=== PATIENT | female | born 1945 ===

== ENCOUNTER 2017-01-01 07:11 | Day surgery (SDC) | payer OTHER ==
[2017-01-01 08:00] VITALS: BMI 24.1
[2017-01-01] MEDS ORDERED: Propofol 10 mg/ml Inj (20 ML) ONE (09:04)
[2017-01-01] MEDS ORDERED: Midazolam 2 MG/2 ML VIAL ONE (09:04)
--- NOTE | 2017-01-01 09:06 | CP.SDSHP ---
Same Day Surgery H & P - History Proposed Procedure: colonoscopy - Previous Medical/Surgical History Cardiac: Hypertension Previous Surgical History: Hysterectomy - Allergies Allergies: Allergies aspirin Allergy (Verified 01/01/17 08:01) BURNING SENSATION - Physical Exam Vital Signs: Vital Signs 01/01/17 07:52 Temperature 98 F Pulse Rate 68 Respiratory 20 Rate Blood Pressure 159/86 H O2 Sat by Pulse 99 Oximetry - Date & Time Date: 01/01/17 Time: 09:06 Short Stay Discharge - Short Stay Discharge Admitting Diagnosis/Reason for Visit: SCREENING Disposition: HOME/ ROUTINE
[2017-01-01 09:12] VITALS: O2SAT 100
[2017-01-01 10:15] VITALS: TEMP 97
[2017-01-01 10:23] VITALS: BP 135/80; PULSE 60; RESP 18
== END 2017-01-01 10:24 | disposition home or self-care (01) ==
LOC: C.ENDO 07:11
PROVIDERS: ATTEND Colon & Rectal Surgery
DX: Z12.11 Encounter for screening for malignant neoplasm of colon (principal)
CPT/HCPCS: 45378; J2250; J2704